=== PATIENT | male | born 1970 | race Caucasian/White ===

== ENCOUNTER 2019-11-05 12:24 | Emergency (ER) | payer BC ==
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
[2019-11-05] MEDS ORDERED: DIPHTH,PERTUSS(ACELL),TET 0.5 ML DISP.SYRIN IM ONE ×2 (12:40→12:50)
[2019-11-05] MEDS ORDERED: ASPIRIN 325 MG TABLET PO ONE (12:46)
[2019-11-05 12:48] VITALS: BP 153/103; PULSE 84; TEMP 98.5; BMI 28.5
[2019-11-05] MEDS ORDERED: ASPIRIN 325 MG TABLET ONE (12:50)
[2019-11-05] MEDS ORDERED: ACETAMINOPHEN 325 MG TABLET (FP) PO ONE (12:52)
[2019-11-05] MEDS ORDERED: ACETAMINOPHEN 325 MG TABLET (FP) ONE (12:53)
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
== END 2019-11-05 13:31 | disposition left against medical advice (07) ==
LOC: FER 12:24
PROC: 3E0234Z Introduction of Serum, Toxoid and Vaccine into Muscle, Percutaneous Approach (ICD-10-PCS; principal; 2019-11-05)
DX: M25.561 Pain in right knee (principal); M25.512 Pain in left shoulder
CPT/HCPCS: 90715; 99284-25